=== PATIENT | female | born 1990 ===

== ENCOUNTER 2024-12-10 14:44 | Outpatient (CLI) | payer OTHER | END 2024-12-10 14:46 | disposition home or self-care (01) | LOC: PRENATAL 14:44 | PROVIDERS: ATTEND Obstetrics & Gynecology Maternal & Fetal Medicine | DX: Z76.1 Encounter for health supervision and care of foundling (principal) ==

== ENCOUNTER 2024-12-31 08:03 | Outpatient (CLI) | payer OTHER | END 2024-12-31 08:06 | disposition home or self-care (01) | LOC: PRENATAL 08:03 | PROVIDERS: ATTEND Obstetrics & Gynecology | DX: O44.00 Complete placenta previa NOS or without hemorrhage, unspecified trimester (principal); Z3A.21 21 weeks gestation of pregnancy ==

== ENCOUNTER 2025-04-24 14:30 | Inpatient (IN) | payer OTHER ==
[~2025-04-24] VITALS: Ht 154.9 cm; Wt 2.7 kg
[2025-05-06 07:38] VITALS: BP 137/68
[2025-05-06 07:56] VITALS: BP 137/68
[2025-05-06] MEDS ORDERED: FOLIC ACID0.8 M1 PO (07:56)
[2025-05-06] MEDS ORDERED: [UNRECOGNIZED DRUG - OTHER] PO (07:56)
[2025-05-06] MEDS ORDERED: OXYTOCIN 500 ML IV SCH (09:00)
[2025-05-06] MEDS ORDERED: MORPHINE SULFATE 4 MG/ML VIAL IV ONE (09:00)
[2025-05-06 09:22] LABS: BASO % 0.2 % (0.1-1.2); EOS # 0.03 (0.04-0.54); EOS % 0.4 % (0.7-7.0); LYMPH # 2.20 (1.18-3.74); LYMPH % 26.8 % (19.3-53.1); MEAN PLATELET VOLUME 13.50 fl (9.4-12.4); MONO # 0.31 (0.24-0.82); MONO % 3.8 % (4.7-12.5); NEUT # 5.61 (1.56-6.13); NEUT % 68.2 % (34.0-71.1); RED CELL DISTRIBUTION WIDTH 11.9 % (11.6-14.4)
[2025-05-06 09:48] LABS: INR < 0.93
[2025-05-06 09:49] LABS: URINE APPEARANCE Clear; URINE BILIRRUBIN Negative (NEGATIVE); URINE BLOOD Negative; URINE COLOR Dark Yellow; URINE GLUCOSE Negative (NEGATIVE); URINE KETONE Negative (NEGATIVE); URINE LEUKOCYTE Trace; URINE NITRATE Negative; URINE PROTEIN Negative (NEGATIVE); URINE UROBILINOGEN 0.2 E.U./dl
[2025-05-06 09:55] LABS: URINE BACTERIA 705.4 uL (0.0-1933); URINE EPITHELIAL CELLS 35.3 uL (0.0-38.8); URINE RBC 2.6 uL (0.0-20.8); URINE WBC 41.0 uL (0.0-23.2)
[2025-05-06 10:01] LABS: URINE CAST 0.43 uL (0.0-1.40)
[2025-05-06 15:28] VITALS: BP 128/76
[2025-05-06] MEDS ORDERED: OXYTOCIN 10 UNITS/ML VIAL ONE (19:30)
[2025-05-06] MEDS ORDERED: ERYTHROMYCIN BASE OPHT 1GM EACH TUBE OP ONE (19:30)
[2025-05-06] MEDS ORDERED: CHLORHEXIDINE GLUCONATE 120 ML BOTTLE TOP ONE (19:30)
[2025-05-06 19:42] VITALS: BP 137/76; O2SAT 100
[2025-05-06] MEDS ORDERED: CEFAZOLIN SODIUM 1,000 MG VIAL ONE (20:33)
[2025-05-07] MEDS ORDERED: MORPHINE SULFATE 4 MG/ML CARTRIDGE IV SCH (01:00)
[2025-05-07] MEDS ORDERED: KETOROLAC TROMETHAMINE 60 MG VIAL IM ONE (03:00)
[2025-05-07 04:45] VITALS: BP 135/80
[2025-05-07] MEDS ORDERED: OxyCODONE HCL 5 MG TABLET (ROXICODONE) PO SCH (05:00)
[2025-05-07 08:00] VITALS: BP 116/75
[2025-05-07 08:05] LABS: BASO % 0.2 % (0.1-1.2); EOS # 0.01 (0.04-0.54); EOS % 0.1 % (0.7-7.0); LYMPH # 1.97 (1.18-3.74); LYMPH % 16.6 % (19.3-53.1); MEAN PLATELET VOLUME 13.60 fl (9.4-12.4); MONO # 0.47 (0.24-0.82); MONO % 4.0 % (4.7-12.5); NEUT # 9.33 (1.56-6.13); NEUT % 78.8 % (34.0-71.1); RED CELL DISTRIBUTION WIDTH 11.8 % (11.6-14.4)
[2025-05-07] MEDS ORDERED: DOCUSATE SODIUM 100MG CAP PO SCH (09:00)
[2025-05-07] MEDS ORDERED: PNV,CALCIUM 72/IRON/FOLIC ACID 1 TAB TABLET PO SCH (09:00)
[2025-05-07] MEDS ORDERED: SIMETHICONE 125 MG CAPSULE PO SCH (09:00)
[2025-05-07 16:30] VITALS: BP 144/82
[2025-05-08] VITALS: BP 97/58
[2025-05-08 08:00] VITALS: BP 140/84
== END 2025-05-08 17:06 | disposition home or self-care (01) | DRG 788 ==
LOC: LDR 05-04 14:30 → OB/GYN 05-06 07:16 → LDR 05-06 07:16 → O/R 05-06 20:22 → OB/GYN 05-06 22:35
PROVIDERS: ADMIT Obstetrics & Gynecology; ATTEND Obstetrics & Gynecology
PROC: 4A1HXCZ Monitoring of Products of Conception, Cardiac Rate, External Approach (ICD-10-PCS; 2025-05-06)
PROC: 10D00Z1 Extraction of Products of Conception, Low, Open Approach (ICD-10-PCS; principal; 2025-05-06 22:45)
DX: O82 Encounter for cesarean delivery without indication (principal); O62.1 Secondary uterine inertia; Z3A.40 40 weeks gestation of pregnancy; Z37.0 Single live birth